=== PATIENT | male | born 1985 | race Caucasian/White ===

== ENCOUNTER 2019-08-13 16:35 | Emergency (ER) | payer MEDICARE ==
[~2019-08-13] VITALS: Ht 175.3 cm; Wt 72.0 kg
[2019-08-13 16:43] VITALS: BP 124/88
== END 2019-08-13 18:09 | disposition home or self-care (01) ==
LOC: ER 16:35
DX: S90.811A Abrasion, right foot, initial encounter (principal); Y93.01 Activity, walking, marching and hiking; Y92.488 Other paved roadways as the place of occurrence of the external cause; Z59.0 Homelessness; F31.9 Bipolar disorder, unspecified
CPT/HCPCS: 99281